=== PATIENT | male | born 1970 | race Caucasian/White ===

== ENCOUNTER 2022-01-22 21:34 | Emergency (ER) | payer BC ==
[~2022-01-22] VITALS: Ht 170.2 cm; Wt 79.4 kg
[2022-01-22] MEDS ORDERED: BUSPIRONE HCL10 MG PO (21:49)
[2022-01-23] MEDS ORDERED: KETO10TA2 PO (04:49)
[2022-01-23] MEDS ORDERED: NORFLEX100MG PO (04:49)
== END 2022-01-23 04:55 | disposition home or self-care (01) ==
LOC: ER 21:34
DX: N20.0 Calculus of kidney (principal); M54.9 Dorsalgia, unspecified; R31.9 Hematuria, unspecified; I10 Essential (primary) hypertension; Z72.0 Tobacco use